=== PATIENT | female | born 1935 | race African-American/Black ===

== ENCOUNTER 2022-06-10 14:25 | Inpatient (IN) ==
[2022-06-10 15:07] LABS: Basophils % 0.3 % (0.0-0.8); Eosinophils % 0.3 % (0.00-10.9); Hematocrit 33.2 VOL% (35.7-47.0); Immature Granulocytes % 0.6 %; Immature Granulocytes Absolute 0.06 #; Lymphocytes # 1.4 10*3/uL (1.4-4.0); Lymphocytes % 13.6 % (21.3-54.2); Mean Corpuscular HGB Conc 33.1 GM/DL (32-36); Monocytes # 1.2 10*3/uL (0.11-0.8); Monocytes % 11.6 % (1.7-12.7); Neutrophils % 73.6 % (38.7-73.9); Platelet Count 271 T/CUMM (130-400); Red Blood Count 3.61 MC/CUMM (3.8-5.5); Red Cell Distribution Width 13.7 % (9.3-17.3); White Blood Count 10.5 T/CUMM (4-12)
[2022-06-10 15:20] LABS: Albumin 3.1 G/DL (3.4-5.0); Bilirubin,Total 0.5 MG/DL (0.20-1.00); Calcium 8.7 MG/DL (8.5-10.1); Osmolality,Calculated 259.8 MOS/KG (273-304); Potassium 4.1 MMOL/L (3.5-5.1); Total Protein 6.3 G/DL (6.4-8.2)
[2022-06-10] MEDS: niCARdipine INJ 25 MG in SODIUM CHLORIDE 0.9% 240 ML IV PRN (15:38)
[2022-06-10 16:26] LABS: Arterial Base Excess iSTAT 1 MMOL/L (-2.5-2.5); Arterial O2 Saturation iSTAT 99 % (95-100); Arterial PCO2 iSTAT 29 MM HG (35-48); Arterial PO2 iSTAT 108 MM HG (80-95); Arterial Total CO2 iSTAT 24 MMO/L (23-27); Arterial pH iSTAT 7.502 (7.35-7.45)
[2022-06-10] MEDS: carvediloL 6.25 MG TABLET PO SCH ×2 (17:14→20:38)
[2022-06-10] MEDS ORDERED: GLUCAGON 1 MG VIAL IM PRN ×2 (17:31→18:57)
[2022-06-10] MEDS ORDERED: ONDANSETRON 4 MG/2 ML VIAL IV PRN (17:31)
[2022-06-10] MEDS ORDERED: ALBUTEROL 2.5 MG/3 ML NEB RESP TX PRN (17:31)
[2022-06-10] MEDS ORDERED: DEXTROSE 10% 250 ML BAG IV PRN ×2 (17:38→19:00)
[2022-06-10] MEDS ORDERED: ALUMINUM/MAGNES/SIMETH MAX STR 30 ML UDCUP PO PRN (17:41)
[2022-06-10] MEDS ORDERED: FUROSEMIDE 40 MG/4 ML VIAL IV ONE (18:00)
[2022-06-10] MEDS ORDERED: ACETAMINOPHEN 325 MG TABLET PO PRN (19:46)
[2022-06-10 20:07] LABS: RBC,Urine 7 /HPF (0-4)
[2022-06-10 20:09] LABS: Bilirubin,Urine Negative (Negative); Blood, Urine Small mg/dL (Negative); Glucose,Urine (UA) Negative (Negative); Ketones,Urine Negative (Negative); Nitrite,Urine Negative (Negative); Protein,Urine Negative (Negative); Urine Appearance Clear (Clear); Urine Color Yellow (Yellow); Urine Urobilinogen 0.2 eU/dL (<2.0); Urine pH 7.5 (4.5-8.0)
[2022-06-10] MEDS: ENOXAPARIN 40 MG/0.4 ML SYRINGE SUBCUT SCH (20:38)
[2022-06-10] MEDS: FAMOTIDINE 20 MG TABLET PO SCH (20:38)
[2022-06-10] MEDS: QUEtiapine 25 MG TABLET PO SCH (20:38)
[2022-06-10] MEDS: INSULIN LISPRO 100 UNIT/ML SUBCUT SCH (20:38)
[2022-06-11] MEDS: niCARdipine INJ 25 MG in SODIUM CHLORIDE 0.9% 240 ML IV PRN (01:47)
[2022-06-11 05:58] LABS: Basophils # 0.1 10*3/uL (0.0-0.2); Basophils % 0.6 % (0.0-0.8); Eosinophils # 0.1 10*3/uL (0.0-0.87); Eosinophils % 1.4 % (0.00-10.9); Hematocrit 32.3 VOL% (35.7-47.0); Hemoglobin 10.8 GM/DL (12.0-16.0); Immature Granulocytes % 0.5 %; Immature Granulocytes Absolute 0.04 #; Lymphocytes # 1.9 10*3/uL (1.4-4.0); Lymphocytes % 21.8 % (21.3-54.2); Mean Corpuscular HGB Conc 33.4 GM/DL (32-36); Mean Platelet Volume 9.6 FL (9.6-12.0); Monocytes # 1.1 10*3/uL (0.11-0.8); Monocytes % 13.2 % (1.7-12.7); Neutrophils % 62.5 % (38.7-73.9); Platelet Count 285 T/CUMM (130-400); Red Blood Count 3.51 MC/CUMM (3.8-5.5); Red Cell Distribution Width 13.6 % (9.3-17.3); White Blood Count 8.5 T/CUMM (4-12)
[2022-06-11 06:13] LABS: Calcium 9.1 MG/DL (8.5-10.1); High Sensitive Troponin I* 14.7 ng/L (0-54); Osmolality,Calculated 259.7 MOS/KG (273-304); Potassium 3.6 MMOL/L (3.5-5.1)
[2022-06-11] MEDS: FAMOTIDINE 20 MG TABLET PO SCH ×2 (09:16→20:39)
[2022-06-11] MEDS: DONEPEZIL 5 MG TABLET PO SCH (09:16)
[2022-06-11] MEDS: ROSUVASTATIN 20 MG TABLET PO SCH (09:16)
[2022-06-11] MEDS: amLODIPine 10 MG TABLET PO SCH (09:17)
[2022-06-11] MEDS: MAGNESIUM OXIDE 400 MG TABLET PO SCH (09:17)
[2022-06-11] MEDS: SERTRALINE 25 MG TABLET PO SCH (09:17)
[2022-06-11] MEDS: INSULIN LISPRO 100 UNIT/ML SUBCUT SCH ×4 (09:38→20:39)
[2022-06-11] MEDS: carvediloL 3.125 MG TABLET PO SCH ×2 (09:39→20:39)
[2022-06-11] MEDS: QUEtiapine 25 MG TABLET PO SCH (20:39)
[2022-06-11] MEDS: ENOXAPARIN 40 MG/0.4 ML SYRINGE SUBCUT SCH (20:39)
[2022-06-12] MEDS: MAGNESIUM OXIDE 400 MG TABLET PO SCH (09:08)
[2022-06-12] MEDS: DONEPEZIL 5 MG TABLET PO SCH (09:08)
[2022-06-12] MEDS: carvediloL 3.125 MG TABLET PO SCH ×2 (09:08→21:08)
[2022-06-12] MEDS: amLODIPine 10 MG TABLET PO SCH (09:09)
[2022-06-12] MEDS: SERTRALINE 25 MG TABLET PO SCH (09:09)
[2022-06-12] MEDS: ROSUVASTATIN 20 MG TABLET PO SCH (09:09)
[2022-06-12] MEDS: FAMOTIDINE 20 MG TABLET PO SCH ×2 (09:09→21:08)
[2022-06-12] MEDS: INSULIN LISPRO 100 UNIT/ML SUBCUT SCH ×4 (10:14→21:09)
[2022-06-12] MEDS: QUEtiapine 25 MG TABLET PO SCH (21:08)
[2022-06-12] MEDS: ENOXAPARIN 40 MG/0.4 ML SYRINGE SUBCUT SCH (21:08)
[2022-06-13 04:58] LABS: Basophils % 0.4 % (0.0-0.8); Eosinophils # 0.2 10*3/uL (0.0-0.87); Eosinophils % 2.3 % (0.00-10.9); Hematocrit 32.3 VOL% (35.7-47.0); Hemoglobin 10.8 GM/DL (12.0-16.0); Immature Granulocytes % 0.3 %; Immature Granulocytes Absolute 0.02 #; Lymphocytes # 1.6 10*3/uL (1.4-4.0); Lymphocytes % 21.5 % (21.3-54.2); Mean Corpuscular HGB Conc 33.4 GM/DL (32-36); Mean Corpuscular Volume 93.6 FL (87-102); Mean Platelet Volume 9.1 FL (9.6-12.0); Monocytes % 13.1 % (1.7-12.7); Neutrophils % 62.4 % (38.7-73.9); Platelet Count 241 T/CUMM (130-400); Red Blood Count 3.45 MC/CUMM (3.8-5.5); Red Cell Distribution Width 13.4 % (9.3-17.3); White Blood Count 7.6 T/CUMM (4-12)
[2022-06-13 05:23] LABS: Albumin 2.5 G/DL (3.4-5.0); Bilirubin,Total 0.4 MG/DL (0.20-1.00); Calcium 8.6 MG/DL (8.5-10.1); Osmolality,Calculated 267.4 MOS/KG (273-304); Potassium 3.8 MMOL/L (3.5-5.1); Risk Ratio 1.98; Total Protein 5.6 G/DL (6.4-8.2); VLDL Cholesterol 11.8 MG/DL
[2022-06-13] MEDS: FAMOTIDINE 20 MG TABLET PO SCH ×2 (09:23→21:35)
[2022-06-13] MEDS: SERTRALINE 25 MG TABLET PO SCH (09:23)
[2022-06-13] MEDS: ROSUVASTATIN 20 MG TABLET PO SCH (09:23)
[2022-06-13] MEDS: MAGNESIUM OXIDE 400 MG TABLET PO SCH (09:23)
[2022-06-13] MEDS: amLODIPine 10 MG TABLET PO SCH (09:24)
[2022-06-13] MEDS: carvediloL 3.125 MG TABLET PO SCH ×2 (09:24→21:35)
[2022-06-13] MEDS: INSULIN LISPRO 100 UNIT/ML SUBCUT SCH ×3 (09:25→15:33)
[2022-06-13] MEDS: DONEPEZIL 5 MG TABLET PO SCH (09:25)
[2022-06-13] MEDS: POLYETHYLENE GLYCOL POWDER 17 GM PACK PO SCH (12:39)
[2022-06-13] MEDS: QUEtiapine 25 MG TABLET PO SCH (21:35)
[2022-06-13] MEDS: ENOXAPARIN 40 MG/0.4 ML SYRINGE SUBCUT SCH (21:35)
[2022-06-14] MEDS: INSULIN LISPRO 100 UNIT/ML SUBCUT SCH ×5 (06:02→21:51)
[2022-06-14] MEDS: DONEPEZIL 5 MG TABLET PO SCH (10:46)
[2022-06-14] MEDS: amLODIPine 10 MG TABLET PO SCH (10:46)
[2022-06-14] MEDS: MAGNESIUM OXIDE 400 MG TABLET PO SCH (10:46)
[2022-06-14] MEDS: carvediloL 3.125 MG TABLET PO SCH ×2 (10:46→21:50)
[2022-06-14] MEDS: SERTRALINE 25 MG TABLET PO SCH (10:47)
[2022-06-14] MEDS: POLYETHYLENE GLYCOL POWDER 17 GM PACK PO SCH (10:47)
[2022-06-14] MEDS: FAMOTIDINE 20 MG TABLET PO SCH ×2 (10:47→21:51)
[2022-06-14] MEDS: ROSUVASTATIN 20 MG TABLET PO SCH (10:47)
[2022-06-14] MEDS: ENOXAPARIN 40 MG/0.4 ML SYRINGE SUBCUT SCH (21:50)
[2022-06-14] MEDS: QUEtiapine 25 MG TABLET PO SCH (21:51)
[2022-06-15 06:01] LABS: Basophils % 0.4 % (0.0-0.8); Eosinophils # 0.2 10*3/uL (0.0-0.87); Eosinophils % 2.3 % (0.00-10.9); Hematocrit 34.3 VOL% (35.7-47.0); Hemoglobin 11.1 GM/DL (12.0-16.0); Immature Granulocytes % 0.4 %; Immature Granulocytes Absolute 0.03 #; Lymphocytes # 1.9 10*3/uL (1.4-4.0); Lymphocytes % 27.2 % (21.3-54.2); Mean Corpuscular HGB Conc 32.4 GM/DL (32-36); Mean Corpuscular Volume 94.8 FL (87-102); Mean Platelet Volume 9.5 FL (9.6-12.0); Monocytes % 14.1 % (1.7-12.7); Neutrophils % 55.6 % (38.7-73.9); Platelet Count 250 T/CUMM (130-400); Red Blood Count 3.62 MC/CUMM (3.8-5.5); Red Cell Distribution Width 13.4 % (9.3-17.3)
[2022-06-15 06:30] LABS: Calcium 8.9 MG/DL (8.5-10.1); Osmolality,Calculated 272.1 MOS/KG (273-304); Potassium 4.2 MMOL/L (3.5-5.1)
[2022-06-15] MEDS: INSULIN LISPRO 100 UNIT/ML SUBCUT SCH ×4 (08:55→20:55)
[2022-06-15] MEDS: carvediloL 3.125 MG TABLET PO SCH ×2 (09:41→20:54)
[2022-06-15] MEDS: FAMOTIDINE 20 MG TABLET PO SCH ×2 (09:41→20:54)
[2022-06-15] MEDS: SERTRALINE 25 MG TABLET PO SCH (09:41)
[2022-06-15] MEDS: ROSUVASTATIN 20 MG TABLET PO SCH (09:41)
[2022-06-15] MEDS: POLYETHYLENE GLYCOL POWDER 17 GM PACK PO SCH (09:42)
[2022-06-15] MEDS: MAGNESIUM OXIDE 400 MG TABLET PO SCH (09:42)
[2022-06-15] MEDS: amLODIPine 10 MG TABLET PO SCH (09:42)
[2022-06-15] MEDS: DONEPEZIL 5 MG TABLET PO SCH (09:46)
[2022-06-15] MEDS: SODIUM CHLORIDE 0.9% 1,000 ML IV SCH (12:59)
[2022-06-15] MEDS ORDERED: hydrALAZINE 20 MG/1 ML VIAL IV PRN (13:30)
[2022-06-15 13:55] LABS: Folate 9.61 NG/ML (5.38-24.0)
[2022-06-15] MEDS: QUEtiapine 25 MG TABLET PO SCH (20:55)
[2022-06-15] MEDS: ENOXAPARIN 40 MG/0.4 ML SYRINGE SUBCUT SCH (20:55)
[2022-06-16 05:48] LABS: Basophils % 0.5 % (0.0-0.8); Eosinophils # 0.2 10*3/uL (0.0-0.87); Hematocrit 31.2 VOL% (35.7-47.0); Hemoglobin 10.2 GM/DL (12.0-16.0); Immature Granulocytes % 0.3 %; Immature Granulocytes Absolute 0.02 #; Lymphocytes # 1.9 10*3/uL (1.4-4.0); Lymphocytes % 31.3 % (21.3-54.2); Mean Corpuscular HGB Conc 32.7 GM/DL (32-36); Mean Corpuscular Volume 94.3 FL (87-102); Mean Platelet Volume 9.3 FL (9.6-12.0); Monocytes # 0.8 10*3/uL (0.11-0.8); Monocytes % 13.8 % (1.7-12.7); Neutrophils % 51.1 % (38.7-73.9); Platelet Count 233 T/CUMM (130-400); Red Blood Count 3.31 MC/CUMM (3.8-5.5); Red Cell Distribution Width 13.5 % (9.3-17.3)
[2022-06-16 06:04] LABS: Calcium 8.3 MG/DL (8.5-10.1); Osmolality,Calculated 278.5 MOS/KG (273-304); Potassium 4.1 MMOL/L (3.5-5.1)
[2022-06-16] MEDS: INSULIN LISPRO 100 UNIT/ML SUBCUT SCH ×4 (08:44→20:33)
[2022-06-16] MEDS: SODIUM CHLORIDE 0.9% 1,000 ML IV SCH (08:50)
[2022-06-16] MEDS: amLODIPine 10 MG TABLET PO SCH (08:51)
[2022-06-16] MEDS: DONEPEZIL 5 MG TABLET PO SCH (08:51)
[2022-06-16] MEDS: POLYETHYLENE GLYCOL POWDER 17 GM PACK PO SCH (08:51)
[2022-06-16] MEDS: ROSUVASTATIN 20 MG TABLET PO SCH (08:51)
[2022-06-16] MEDS: FAMOTIDINE 20 MG TABLET PO SCH ×2 (08:52→20:32)
[2022-06-16] MEDS: SERTRALINE 25 MG TABLET PO SCH (08:52)
[2022-06-16] MEDS: MAGNESIUM OXIDE 400 MG TABLET PO SCH (08:52)
[2022-06-16] MEDS: carvediloL 3.125 MG TABLET PO SCH ×2 (08:52→20:32)
[2022-06-16] MEDS: QUEtiapine 25 MG TABLET PO SCH (20:32)
[2022-06-16] MEDS: ENOXAPARIN 40 MG/0.4 ML SYRINGE SUBCUT SCH (20:33)
[2022-06-17] MEDS: SODIUM CHLORIDE 0.9% 1,000 ML IV SCH (03:29)
[2022-06-17] MEDS: amLODIPine 10 MG TABLET PO SCH (08:58)
[2022-06-17] MEDS: DONEPEZIL 5 MG TABLET PO SCH (08:59)
[2022-06-17] MEDS: SERTRALINE 25 MG TABLET PO SCH (08:59)
[2022-06-17] MEDS: INSULIN LISPRO 100 UNIT/ML SUBCUT SCH ×2 (08:59→12:03)
[2022-06-17] MEDS: POLYETHYLENE GLYCOL POWDER 17 GM PACK PO SCH (08:59)
[2022-06-17] MEDS: FAMOTIDINE 20 MG TABLET PO SCH (08:59)
[2022-06-17] MEDS: carvediloL 3.125 MG TABLET PO SCH (08:59)
[2022-06-17] MEDS: MAGNESIUM OXIDE 400 MG TABLET PO SCH (08:59)
[2022-06-17] MEDS: ROSUVASTATIN 20 MG TABLET PO SCH (08:59)
[2022-06-17 11:57] VITALS: BP 113/86
== END 2022-06-17 14:35 | disposition swing bed (61) | DRG 305 ==
LOC: N.ED 14:25 → N.EDINP 16:49 → INTOOBSV 16:49 → SUATTDRO 16:49 → N.CC 17:25 → N.TELEN 06-11 22:26
PROVIDERS: ADMIT Internal Medicine; ATTEND Internal Medicine